=== PATIENT | male | born 1970 | race Caucasian/White ===

== ENCOUNTER 2020-12-31 21:18 | Inpatient (IN) | payer OTHER ==
[~2020-12-31] VITALS: Ht 182.9 cm; Wt 81.6 kg
[2020-12-31] MEDS ORDERED: LORazepam 2MG/ML-1ML VIAL IV ONE (21:45)
[2020-12-31 22:30] LABS: Basophils # (auto) 0 10 ^3/uL (0-0.2); Basophils % (auto) 0.7 % (0.0-2.0); Eosinophils # (auto) 0 10 ^3/uL (0-0.8); Eosinophils % (auto) 0.2 % (0.0-7.0); Hematocrit 43.6 % (41.0-53.0); Hemoglobin 14.9 g/dL (13.5-17.5); Lymphocytes # (auto) 0.6 10 ^3/uL (0.4-5.4); Lymphocytes % (auto) 13.7 % (10.0-50.0); Mean Corpuscular Hgb Conc. 34.2 g/dL (32.0-36.0); Mean Corpuscular Volume 81.9 fL (80.0-100.0); Monocytes # (auto) 0.8 10 ^3/uL (0-1.3); Monocytes % (auto) 16.6 % (0.0-12.0); Neutrophils # (auto) 3.2 10 ^3/uL (1.6-8.6); Neutrophils % (auto) 68.8 % (37.0-80.0); Nucleated Red Blood Cells % 0.1 %; Red Blood Cells 5.33 10^6/uL (4.5-5.90); Red Cell Distribution Width 13.8 % (11.8-14.3); White Blood Cell 4.6 10^3/uL (4.4-10.8)
[2020-12-31 22:39] LABS: Albumin 4.2 g/dL (3.4-5.0); Anion Gap 9 (5-15); Blood Urea Nitrogen 9 mg/dL (7-18); Calcium 8.8 mg/dL (8.5-10.1); Carbon Dioxide 29 mmol/L (21-32); Chloride 95 mmol/L (98-107); Glucose 167 mg/dL (74-106); Lipase 249 U/L (73-393); Potassium 3.6 mmol/L (3.5-5.1); Sodium 133 mmol/L (136-145)
[2020-12-31 22:43] LABS: Lactic Acid w/Reflex 2.9 mmol/L (0.4-2.0)
[2020-12-31 22:47] LABS: Alanine Aminotransferase 110 U/L (16-61); Alkaline Phosphatase 93 U/L (45-117); Aspartate Aminotransferase 160 U/L (15-37); BUN/Creatinine Ratio 9.1; Bilirubin, Total 1.2 mg/dL (0.2-1.0); GFR African American 102 mL/min; GFR Non-African American 85 mL/min; Total Protein 8.1 g/dL (6.4-8.2)
[2020-12-31 22:54] LABS: Blood Alcohol < 3.0 mg/dL (0-5)
[2020-12-31] MEDS ORDERED: LORazepam 2MG/ML-1ML VIAL ONE (23:57)
[2021-01-01] MEDS ORDERED: chlordiazePOXIDE HCL 25 MG CAP PO PRN (02:45)
[2021-01-01] MEDS ORDERED: ONDANSETRON HCL 4 MG/2 ML VIAL IV PRN (02:45)
[2021-01-01] MEDS ORDERED: MORPHINE SULFATE INJECTION 2 MG/ML SYRG IV PRN (02:45)
[2021-01-01] MEDS ORDERED: SODIUM CHLORIDE 0.9% 1,000 ML IV ONE (02:45)
[2021-01-01] MEDS ORDERED: NITROGLYCERIN 0.4 MG SL TAB SL PRN (02:45)
[2021-01-01] MEDS ORDERED: LORazepam 2MG/ML-1ML VIAL IV PRN (02:45)
[2021-01-01 06:16] VITALS: BP 146/93
[2021-01-01] MEDS ORDERED: ASPirin 81 mg TAB PO SCH (10:00)
[2021-01-01] MEDS ORDERED: FOLIC ACID 1 MG, MULTIPLE VITAMIN 10 ML, MAGNESIUM SULF SDV 50% 8 MEQ, THIAMINE INJ 100... INJ SCH ×5 (12:00)
== END 2021-01-01 07:23 | disposition left against medical advice (07) | DRG 433 ==
LOC: EDBD 21:18 → ER 21:21 → TELE 01-01 02:47
PROVIDERS: ADMIT Nurse Practitioner; ATTEND Hospitalist
DX: K74.60 Unspecified cirrhosis of liver (principal); F10.239 Alcohol dependence with withdrawal, unspecified; R56.9 Unspecified convulsions; Z53.29 Procedure and treatment not carried out because of patient's decision for other reasons
CPT/HCPCS: 36415; 70450; 71045; 80053; 80320; 83605; 83690; 83735; 84484; 85025; 93005; 96374; G0378